=== PATIENT | male | born 1955 | race Caucasian/White ===

== ENCOUNTER → 2018-07-12 11:52 | Outpatient (CLI) | payer OTHER, SELFPAY ==
--- NOTE | 2018-07-12 11:58 | US_ITS ---
FNA w guidance HISTORY: Dominant solid left thyroid nodule ITS.REASON: LT THYROID NODULE ORDERING PHYSICIAN: Brennon Kim MD PATIENT AGE: 63 years COMPARISON: 07/12/2018 TECHNIQUE: Following obtaining informed consent, using aseptic technique and local anesthesia with buffered lidocaine, fine-needle aspiration was performed of the nodule of interest using sonographic guidance. 2 passes were made into the nodule with a 25-gauge needle and one pass with a 21-gauge needle. Specimen was given to cytology. The patient tolerated the procedure well without evidence of immediate complications and left the ultrasound suite in stable condition. CYTOLOGY:Pending IMPRESSION: Uneventful ultrasound-guided fine needle aspiration of left thyroid nodule with cytology pending
--- NOTE | 2018-07-12 11:58 | US_ITS ---
US thyroid HISTORY: ITS.REASON: LT THYROID NODULE ORDERING PHYSICIAN: Brennon Kim MD PATIENT AGE: 63 years Comparison: None FINDINGS: Prebiopsy images performed Right lobe: Homogeneous echogenicity. 3.7 x 1.8 x 1.3 cm. No nodules Left lobe: 4.6 x 2.1 x 2.5 cm. There is a solid-appearing 3.7 x 1.9 x 1.7 cm nodule in the mid and lower aspect of the left lobe of the thyroid gland. The nodule is mostly isoechoic having some heterogeneous decreased echogenicity centrally. Isthmus: Unremarkable IMPRESSION: Solid nodule of the mid and lower pole of the thyroid gland on the left. Subsequent fine-needle aspiration performed of the left-sided nodule
== END ==
PROVIDERS: PCP Nurse Practitioner; Visit Provider Otolaryngology
DX: E04.1 Nontoxic single thyroid nodule (principal)
CPT/HCPCS: 10022; 76536